=== PATIENT | female | born 1935 | race Two or more races ===

== ENCOUNTER 2022-09-07 20:51 | Inpatient (IN) | payer MEDICARE, OTHER ==
[~2022-09-07] VITALS: Ht 154.9 cm; Wt 52.2 kg
[2022-09-07] MEDS ORDERED: hydrALAZINE HCL 20 MG/1 ML VIAL IV ONE (21:30)
[2022-09-07] MEDS ORDERED: IV NORMAL SALINE 500 ML BAG IV ONE (21:30)
[2022-09-07] MEDS ORDERED: hydrALAZINE HCL 20 MG/1 ML VIAL ONE (21:41)
[2022-09-07 21:52] LABS: HEMATOCRIT 36.5 % (31.2-41.9); MEAN CORPUSCULAR HEMOGLOBIN 28.4 uug (24.7-32.8); MEAN CORPUSCULAR VOLUME 87.7 fL (75.5-95.3); PLATELET COUNT (AUTO) 238 K/uL (179-408)
[2022-09-07 22:06] LABS: LIPASE 134 U/L (73-393)
[2022-09-07 22:25] LABS: BILIRUBIN,TOTAL 0.5 mg/dL (0.2-1.0); POTASSIUM 3.7 mmol/L (3.5-5.1); TOTAL PROTEIN, SERUM 7.7 g/dL (6.4-8.2)
[2022-09-07 22:31] LABS: *BILIRUBIN,URIN NEGATIVE (NEGATIVE); *BLOOD, URINE NEGATIVE (NEGATIVE); *CLARITY,URINE CLEAR (CLEAR); *COLOR,URINE YELLOW (YELLOW); *KETONES,URINE NEGATIVE (NEGATIVE); *UROBILINOGEN,URINE 0.2 E.U./dl (NORMAL); LEUKOCYTE ESTERASE ,URINE NEGATIVE (NEGATIVE); NITRITE, URINE NEGATIVE (NEGATIVE); PH,URINE 5.5 (5.0-8.0); UGLUCOSE NEGATIVE (NEGATIVE)
[2022-09-07] MEDS ORDERED: IV NORMAL SALINE 250 ML IV ONE (22:43)
[2022-09-07] MEDS ORDERED: IOHEXOL 300MG/ML 100 ML INFUS..BTL ONE (22:43)
[2022-09-07] MEDS ORDERED: SWABABLE VALVE TRANSFER SET EA MC ONE (22:43)
[2022-09-07] MEDS ORDERED: ACETAMINOPHEN 325 MG TABLET PO ONE (22:45)
[2022-09-07] MEDS ORDERED: ACETAMINOPHEN 325 MG TABLET ONE (22:48)
--- NOTE | 2022-09-07 23:06 | NUR ---
Called Mannie landers to notify of patient admission.
--- NOTE | 2022-09-07 23:12 | NUR ---
Pt taken to CT.
[2022-09-08] MEDS ORDERED: ACET-2154 PO (00:23)
[2022-09-08] MEDS ORDERED: ATOR40TA PO (00:24)
[2022-09-08] MEDS ORDERED: ACET-73 PO (00:24)
[2022-09-08] MEDS ORDERED: CRAN425C6 PO (00:24)
[2022-09-08] MEDS ORDERED: ASCO500T10 PO (00:24)
[2022-09-08] MEDS ORDERED: BISA10SU61 RC (00:24)
[2022-09-08] MEDS ORDERED: HYDR-894 PO (00:24)
[2022-09-08] MEDS ORDERED: MULT-594 PO (00:24)
[2022-09-08] MEDS ORDERED: PANT40TA2 PO (00:24)
[2022-09-08] MEDS ORDERED: LISI40TA13 PO (00:24)
[2022-09-08] MEDS ORDERED: ASPI81TA31 PO (00:24)
[2022-09-08] MEDS ORDERED: METO-357 PO (00:24)
[2022-09-08] MEDS ORDERED: DOCU100C36 PO (00:24)
[2022-09-08] MEDS ORDERED: TRAZ-182 PO (00:24)
[2022-09-08] MEDS ORDERED: MAGN400O6 PO (00:24)
[2022-09-08] MEDS ORDERED: IV NORMAL SALINE 1000 ML BAG IV ONE (01:15)
--- NOTE | 2022-09-08 01:58 | NUR ---
Recieved room number from 3rd floor. Pt is to go o room 320.
[2022-09-08] MEDS ORDERED: ACETAMINOPHEN 325 MG TABLET PO ONE (02:45)
[2022-09-08] MEDS ORDERED: ACETAMINOPHEN 325 MG TABLET ONE (03:07)
[2022-09-08] MEDS ORDERED: PANTOPRAZOLE SODIUM 40 MG VIAL ONE (03:25)
[2022-09-08] MEDS ORDERED: PANTOPRAZOLE SODIUM 40 MG VIAL IV ONE (03:30)
--- NOTE | 2022-09-08 03:39 | NUR ---
Called [facility] for panel call. Dr. Terry public relations coordinator.
--- NOTE | 2022-09-08 04:17 | NUR ---
Called [facility] and gave report to Jordyn SAUER.
[2022-09-08] MEDS ORDERED: hydrALAZINE HCL 20 MG/1 ML VIAL IV PRN (04:45)
[2022-09-08] MEDS ORDERED: CLONIDINE HCL 0.1 MG TABLET PO PRN (04:45)
[2022-09-08] MEDS ORDERED: MAGNESIUM HYDROXIDE 30 ML LIQUID UDC PO PRN (04:45)
[2022-09-08] MEDS ORDERED: ONDANSETRON 4 MG/2 ML VIAL IV PRN (04:45)
[2022-09-08] MEDS ORDERED: REMEDY ESSENTIAL ZINC PASTE 113 GM TP PRN (04:45)
--- NOTE | 2022-09-08 05:15 | NUR ---
Transferred patient to the third floor. charge nurse Kary made aware of patient's arrival.
--- NOTE | 2022-09-08 05:30 | NUR ---
Received from ER via [facility] Dx: HTN urgency, alert and oriented x 3, Wolof speaking. In no acute distress. IV acces to RAC intact and patent. Routine admission care rendered, oriented to room, TV, BR and call light. Care plan initiated. Needs assessed and attended to.
[2022-09-08 05:45] VITALS: BP 132/66
[2022-09-08] MEDS: hydrALAZINE HCL 25 MG TABLET PO SCH ×3 (06:04→17:15)
--- NOTE | 2022-09-08 08:00 | NUR ---
AWAKE ALERT BUT DISORIENTED ABLE TO MAKE SIMPLE NEEDS KNOWN.ON ROOM AIR WITH NO SHORTNESS OF BREATH CALL LIGHTS AND PERSONAL BELONGINGS ARE WITHIN EASY REACH AT THIS TIME WILL CONTINUE TO OBSERVE.
[2022-09-08 09:24] LABS: HEMATOCRIT 39.4 % (31.2-41.9); MEAN CORPUSCULAR HEMOGLOBIN 28.9 uug (24.7-32.8); MEAN CORPUSCULAR VOLUME 87.8 fL (75.5-95.3); PLATELET COUNT (AUTO) 258 K/uL (179-408)
[2022-09-08] MEDS: PANTOPRAZOLE SODIUM 40 MG TABLET.DR PO SCH (09:33)
[2022-09-08] MEDS: ACETAMINOPHEN 325 MG TABLET PO PRN (09:34)
--- NOTE | 2022-09-08 09:34 | NUR ---
PATIENT IS ALERT BUT DISORIENTED WITH LANGUAGE BARRIER BUT ABLE TO MAKE SIMPLE NEEDS KNOWN STATED HAS A HEADACHE MEDICATED WITH TYLENOL ORDERED.WILL CONTINUE TO OBSERVE.
[2022-09-08] MEDS: LISINOPRIL 20 MG TABLET PO SCH (09:35)
[2022-09-08 09:44] LABS: THYROID STIMULATING HORMONE 2.169 mIU/mL (0.358-3.740)
[2022-09-08 10:46] LABS: CREATININE 0.9 mg/dL (0.6-1.3); POTASSIUM 3.6 mmol/L (3.5-5.1)
[2022-09-08 10:57] LABS: BILIRUBIN,TOTAL 0.6 mg/dL (0.2-1.0); PHOSPHOROUS 3.7 mg/dL (2.5-4.9); TOTAL PROTEIN, SERUM 8.2 g/dL (6.4-8.2)
[2022-09-08 12:00] VITALS: BP 118/70
--- NOTE | 2022-09-08 13:00 | NUR ---
PATIENT STATED HAVING DIARRHEA DR REDDING NOTIFIED WITH ORDER TO COLLECT AND SEND STOOL FOR C DIFF PATIENT PLACED ON ISOLATION AT THIS TIME PER PROTOCOL UNTIL RESULTS PROVE OTHERWISE.
[2022-09-08] MEDS: MORPHINE SULFATE 2 MG/1 ML DISP.SYRIN IV PRN (15:16)
--- NOTE | 2022-09-08 15:16 | NUR ---
PATIENT C/O SEVERE ABDOMINAL PAIN MEDICATED WITH MORPHINE ORDERED MADE COMFORTABLE WILL OBSERVE.
[2022-09-08 16:00] VITALS: BP_SYST 123; BP_SYST 153; BP_DIAS 52; BP_DIAS 64
[2022-09-08] MEDS: TRAZODONE 50 MG TABLET PO SCH (17:15)
--- NOTE | 2022-09-08 18:00 | NUR ---
RESTING STILL WAITING TO COLLECT STOOL PAIN MEDICATION WAS EFFECTIVE GIVEN.
[2022-09-08 20:00] VITALS: BP 91/49
[2022-09-08] MEDS: VANCOMYCIN FOR PO/GT/NG USE PO SCH (20:30)
--- NOTE | 2022-09-08 22:52 | NUR ---
vanco po medications not available, notify Dr Dumont, Dr Dumont ordered to start vanco po tomorrow.
[2022-09-09] MEDS: hydrALAZINE HCL 25 MG TABLET PO SCH ×4 (00:25→17:48)
[2022-09-09] MEDS: VANCOMYCIN FOR PO/GT/NG USE PO SCH ×3 (00:27→17:08)
[2022-09-09 04:00] VITALS: BP 101/43
[2022-09-09 07:10] LABS: HEMATOCRIT 36.7 % (31.2-41.9); MEAN CORPUSCULAR HEMOGLOBIN 28.6 uug (24.7-32.8); MEAN CORPUSCULAR VOLUME 87.6 fL (75.5-95.3); PLATELET COUNT (AUTO) 260 K/uL (179-408)
[2022-09-09 07:45] LABS: BILIRUBIN,TOTAL 0.7 mg/dL (0.2-1.0); CREATININE 1.2 mg/dL (0.6-1.3); MAGNESIUM 2.2 mg/dL (1.8-2.4); PHOSPHOROUS 4.5 mg/dL (2.5-4.9); POTASSIUM 3.9 mmol/L (3.5-5.1); TOTAL PROTEIN, SERUM 7.5 g/dL (6.4-8.2)
[2022-09-09 08:00] VITALS: BP 96/53
[2022-09-09] MEDS: LISINOPRIL 20 MG TABLET PO SCH (09:00)
[2022-09-09] MEDS: PANTOPRAZOLE SODIUM 40 MG TABLET.DR PO SCH (09:55)
[2022-09-09 12:00] VITALS: BP 124/67
[2022-09-09] MEDS: MORPHINE SULFATE 2 MG/1 ML DISP.SYRIN IV PRN ×2 (12:23→17:50)
[2022-09-09 16:00] VITALS: BP 130/68
[2022-09-09] MEDS: TRAZODONE 50 MG TABLET PO SCH (17:07)
--- NOTE | 2022-09-09 18:21 | NUR ---
SHIFT NOTE: RECEIVED PATIENT ALERT AND ORIENTED X4 YORUBA SPEAKING REPORT GIVEN BY NIGHT NURSE GLEN PT IS ABLE TO TAKE MEDICATION WHOLE NO SIGNS OF RESPIRATORY NOTED PT GIVEN MEDICATION ORDERED NO SIGNS OF ADVERSE REACTION FROM MEDICATION PT WAS GIVEN MORPHINE 2 TIMES DURING SHIFT IV PT TOLERATED WELL NO ADVERSE REACTION NOTED. WILL CONTINUE TO MONITOR FOR SAFETY.
[2022-09-09 20:31] VITALS: BP 123/64
[2022-09-10] MEDS: VANCOMYCIN FOR PO/GT/NG USE PO SCH ×3 (00:02→12:24)
[2022-09-10] MEDS: hydrALAZINE HCL 25 MG TABLET PO SCH ×3 (00:14→12:26)
[2022-09-10 04:40] VITALS: BP 131/46
[2022-09-10 05:51] LABS: MEAN CORPUSCULAR HEMOGLOBIN 29.2 uug (24.7-32.8); MEAN CORPUSCULAR VOLUME 88.2 fL (75.5-95.3); PLATELET COUNT (AUTO) 226 K/uL (179-408)
[2022-09-10 06:27] LABS: CREATININE 1.2 mg/dL (0.6-1.3); MAGNESIUM 2.2 mg/dL (1.8-2.4); PHOSPHOROUS 4.8 mg/dL (2.5-4.9); POTASSIUM 4.1 mmol/L (3.5-5.1)
[2022-09-10] MEDS ORDERED: LISINOPRIL 20 MG TABLET PO SCH (09:00)
[2022-09-10] MEDS: PANTOPRAZOLE SODIUM 40 MG TABLET.DR PO SCH (09:38)
[2022-09-10] MEDS: MORPHINE SULFATE 2 MG/1 ML DISP.SYRIN IV PRN (09:50)
[2022-09-10 11:51] VITALS: BP 157/68
[2022-09-10] MEDS: ACETAMINOPHEN 325 MG TABLET PO PRN (12:26)
[2022-09-10] MEDS ORDERED: HYDR-4077 PO (13:16)
[2022-09-10] MEDS ORDERED: ATOR10TA PO (13:16)
[2022-09-10] MEDS ORDERED: MAGN400O6 PO (13:16)
[2022-09-10] MEDS ORDERED: ACID1TAB4 PO (13:16)
[2022-09-10] MEDS ORDERED: LISI20TA30 PO (13:16)
[2022-09-10] MEDS ORDERED: DICYCLOMINE HCL 20 MG TABLET PO ONE (14:00)
--- NOTE | 2022-09-10 15:42 | NUR ---
REPORT GIVEN TO ALIX AT THE FACILITY.
[2022-09-10 15:54] VITALS: BP 178/84
[2022-09-10 16:04] VITALS: BP 188/110
--- NOTE | 2022-09-10 17:23 | NUR ---
SHIFT NOTES: RECEIVED REPORT FROM AM NURSE HUNTER PATIENT STILL DIDN'T HAVE BM DURING THE NIGHT PT WAS GIVEN MORPHINE FOR ABD PAIN AND TYLENOL. DR RODRIGUEZ SAW PATIENT IN AM ORDERED PT TO BE D/C TO SNF ([facility]) CHARGE NURSE AROLDO CALLED FACILITY AND GAVE REPORT AND AT 1530 AMBULANCE ARRIVED TOOK VITALS B/P ELEVATED GAVE 20MG OF APRESOLINE IVP PATIENT TOLERATED WELL WAS ALSO GIVEN BENTYL FOR STOMACH PAIN. WILL CONTINUE TO MONITOR FOR SAFETY. RETOOK B/P NOW IT IS 139/63. AMBULANCE PUT PT ON GURNEY. NO SIGNS OF RESPIRATORY DISTRESS NOTED. PT DENIES PAIN.
== END 2022-09-10 16:45 | DRG 391 ==
LOC: ER 20:51 → MEDSURG3 09-08 01:30
PROVIDERS: ADMIT Internal Medicine; ATTEND Internal Medicine
PROC: 05H633Z Insertion of Infusion Device into Left Subclavian Vein, Percutaneous Approach (ICD-10-PCS; principal; 2022-09-09)
PROC: B547ZZA Ultrasonography of Left Subclavian Vein, Guidance (ICD-10-PCS; 2022-09-09)
DX: A08.4 Viral intestinal infection, unspecified (principal); N17.0 Acute kidney failure with tubular necrosis; D68.69 Other thrombophilia; J84.9 Interstitial pulmonary disease, unspecified; E78.5 Hyperlipidemia, unspecified; Z74.09 Other reduced mobility; Z20.822 Contact with and (suspected) exposure to COVID-19; Z79.82 Long term (current) use of aspirin; Z90.49 Acquired absence of other specified parts of digestive tract; F32.A Depression, unspecified; K21.9 Gastro-esophageal reflux disease without esophagitis; N28.1 Cyst of kidney, acquired; K75.3 Granulomatous hepatitis, not elsewhere classified; K44.9 Diaphragmatic hernia without obstruction or gangrene; I10 Essential (primary) hypertension; K83.8 Other specified diseases of biliary tract; M89.8X9 Other specified disorders of bone, unspecified site; A04.9 Bacterial intestinal infection, unspecified
CPT/HCPCS: 36415; 71045; 83605; 83690; 83735; 84100; 84443; 84484; 85025; A4663; C9113; G0378; J0360; J2270; J2405; J3370; J7040; Q9967